=== PATIENT | female | born 1935 | race Caucasian/White ===

== ENCOUNTER 2018-09-08 11:29 | Emergency (ER) | payer MEDICARE ==
[~2018-09-08] VITALS: Ht 157.5 cm; Wt 76.9 kg
[2018-09-08 11:29] VITALS: BP 144/80
[2018-09-08] MEDS ORDERED: AMOX875T PO (11:36)
[2018-09-08] MEDS ORDERED: RANI150T14 (11:36)
[2018-09-08] MEDS ORDERED: HYDR25TAB (11:36)
[2018-09-08] MEDS ORDERED: LEVALBUTEROL 1.25 MG/0.5 ML CONCENTRATE NEB INH ONE (12:00)
[2018-09-08] MEDS ORDERED: PRED20TA PO (13:04)
[2018-09-08] MEDS ORDERED: LEVA750T7 PO (13:04)
[2018-09-08] MEDS ORDERED: PROAAER10 INH (13:06)
--- NOTE | 2018-09-08 13:24 | REP ---
HISTORY: Congestion and wheezing. COMPARISON: 07/02/2011, the only prior. Cardiomediastinal silhouette is unchanged and again seen to be within normal limits. The lung maguire are clear with the exception of minimal bibasilar fibrotic change which has developed since the last exam. The pleural angles are seen to be sharp. No acute patchy parenchymal opacities or pleural effusions have developed. There is a large hiatal hernia. The osseous structure is stable and anatomic. IMPRESSION: No evidence of acute cardiopulmonary disease. 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 Electronically Signed by Dion Woodruff DO 09/08/2018 03:36 P
== END 2018-09-08 13:13 | disposition home or self-care (01) ==
LOC: M ED 11:29
DX: J01.90 Acute sinusitis, unspecified (principal); J20.9 Acute bronchitis, unspecified; I10 Essential (primary) hypertension; Z79.899 Other long term (current) drug therapy; Z79.2 Long term (current) use of antibiotics

== ENCOUNTER 2018-09-16 11:15 | Emergency (ER) | payer MEDICAID, MEDICARE ==
[~2018-09-16] VITALS: Ht 157.5 cm; Wt 77.7 kg
[~2018-09-16 11:15] MED LIST: AMOX875T PO; HYDR25TAB; LEVA750T7 PO; PRED20TA PO; PROAAER10 INH; RANI150T14
--- NOTE | 2018-09-16 12:07 | REP ---
Clinical: Acute cough Comparison: 09/08/2018 . Technique: PA and lateral. Findings: The mediastinum and cardiac silhouette are normal. Large stable hiatal hernia with air-fluid level noted. The lung maguire are clear and without acute consolidation, effusion, or pneumothorax. The skeletal structures are intact and normal. Impression: 1. No acute cardiopulmonary process. 2. Large hiatal hernia. Electronically Signed by Jason Lopez MD 09/16/2018 11:58 A
[2018-09-16 12:08] LABS: BASO % 0.5 % (0.0-1.0); EOS # 0.2 10^3/uL (0.0-0.50); EOS % 3.2 % (0.0-3.0); HEMOGLOBIN 12.9 g/dl (12.0-15.5); LYMPH # 1.5 10^3/uL (1.5-4.5); LYMPH % 20.6 % (24.0-44.0); MEAN CORPUSCULAR HEMOGLOBIN 28.5 pg (27.0-33.0); MEAN CORPUSCULAR HGB CONC 33.1 g/dl (32.0-36.5); MEAN CORPUSCULAR VOLUME 86.3 fl (80.0-96.0); MONO # 0.7 10^3/uL (0.0-0.8); MONO % 8.7 % (0.0-5.0); NEUTROPHILS % 66.6 % (36.0-66.0); PLATELET COUNT, AUTOMATED 348 10^3/uL (150-450); RED BLOOD COUNT 4.52 10^6/uL (4.00-5.40); WHITE BLOOD COUNT 7.5 10^3/uL (4.0-10.0)
[2018-09-16] MEDS ORDERED: ALBUTEROL SULFATE 2.5 MG/0.5 ML INH NEB SOLN NEB PRN (12:30)
[2018-09-16 12:54] LABS: BLOOD UREA NITROGEN 18 MG/DL (7-18); CALCIUM LEVEL 8.9 MG/DL (8.8-10.2); CARBON DIOXIDE LEVEL 30 MEQ/L (21-32); CHLORIDE LEVEL 103 MEQ/L (98-107); GLOMERULAR FILTRATION RATE > 60.0 (>32); GLUCOSE, FASTING 95 MG/DL (70-100); SODIUM LEVEL 138 MEQ/L (136-145)
[2018-09-16] MEDS ORDERED: CHERSYP3 PO (13:05)
[2018-09-16] MEDS ORDERED: AZIT-12 PO (13:15)
[2018-09-16 13:19] VITALS: BP 135/70
--- NOTE | 2018-09-16 19:42 | ECGEPIP ---
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
[2018-09-16] MEDS ORDERED: LEVO750T13 (21:51)
[2018-09-16] MEDS ORDERED: TIMO0.5S29 (21:51)
[2018-09-17] MEDS ORDERED: EASY-106 XX (17:35)
[2018-09-17] MEDS ORDERED: PRED20TA PO (17:36)
[2018-09-17] MEDS ORDERED: ALBU83IN NEB (17:36)
[2018-09-17] MEDS ORDERED: TESS100C PO (19:04)
== END 2018-09-16 13:31 | disposition home or self-care (01) ==
LOC: M ED 11:15
DX: R05 Cough (principal); K44.9 Diaphragmatic hernia without obstruction or gangrene; I10 Essential (primary) hypertension; E78.5 Hyperlipidemia, unspecified; K21.9 Gastro-esophageal reflux disease without esophagitis; Z79.51 Long term (current) use of inhaled steroids; Z79.52 Long term (current) use of systemic steroids; Z79.899 Other long term (current) drug therapy

== ENCOUNTER 2018-09-16 21:45 | Emergency (ER) | payer MEDICARE ==
[~2018-09-16] VITALS: Ht 157.5 cm; Wt 76.4 kg
[2018-09-16 21:45] VITALS: BP 199/88
[~2018-09-16 21:45] MED LIST changes: +AZIT-12 PO; +CHERSYP3 PO
[2018-09-16] MEDS ORDERED: TIMO0.5S29 (21:51)
[2018-09-16] MEDS ORDERED: LEVO750T13 (21:51)
[2018-09-17] MEDS ORDERED: EASY-106 XX (17:35)
[2018-09-17] MEDS ORDERED: ALBU83IN NEB (17:36)
[2018-09-17] MEDS ORDERED: PRED20TA PO (17:36)
[2018-09-17] MEDS ORDERED: TESS100C PO (19:04)
== END 2018-09-16 23:33 | disposition left against medical advice (07) ==
LOC: M ED 21:45
DX: R05 Cough (principal); Z53.21 Procedure and treatment not carried out due to patient leaving prior to being seen by health care provider

== ENCOUNTER 2018-09-17 15:05 | Emergency (ER) | payer MEDICARE ==
[~2018-09-17] VITALS: Ht 157.5 cm; Wt 76.4 kg
[~2018-09-17 15:05] MED LIST changes: +LEVO750T13; +TIMO0.5S29
[2018-09-17] MEDS ORDERED: IPRATROPIUM 0.5MG/ALBUTEROL 2.5MG INH SOL UD 3ML (DUONEB)(J7620) As Ordered ONE (15:20)
[2018-09-17] MEDS ORDERED: IPRATROPIUM 0.5MG/ALBUTEROL 2.5MG INH SOL UD 3ML (DUONEB)(J7620) NEB ONE ×2 (15:30→18:30)
[2018-09-17] MEDS ORDERED: ALBUTEROL SULFATE 2.5 MG/0.5 ML INH NEB SOLN INH ONE (15:30)
--- NOTE | 2018-09-17 16:03 | REP ---
Clinical: Cough and dyspnea . Comparison: 09/16/2018 . Findings: The mediastinum and cardiac silhouette are stable and within normal limits for portable technique. Stable hiatal hernia. The lung maguire are clear without acute consolidation, effusion, or pneumothorax. Skeletal structures are intact. Impression: No acute cardiopulmonary process appreciated. Electronically Signed by Jason Lopez MD 09/17/2018 03:55 P
[2018-09-17 16:14] LABS: BASO % 0.3 % (0.0-1.0); EOS # 0.3 10^3/uL (0.0-0.50); EOS % 5.2 % (0.0-3.0); HEMATOCRIT 37.6 % (36.0-47.0); HEMOGLOBIN 12.7 g/dl (12.0-15.5); LYMPH % 16.4 % (24.0-44.0); MEAN CORPUSCULAR HEMOGLOBIN 29.3 pg (27.0-33.0); MEAN CORPUSCULAR HGB CONC 33.8 g/dl (32.0-36.5); MEAN CORPUSCULAR VOLUME 86.8 fl (80.0-96.0); MONO # 0.5 10^3/uL (0.0-0.8); MONO % 8.7 % (0.0-5.0); NEUTROPHILS # 4.1 10^3/uL (1.8-7.7); NEUTROPHILS % 68.9 % (36.0-66.0); PLATELET COUNT, AUTOMATED 283 10^3/uL (150-450); RED BLOOD COUNT 4.33 10^6/uL (4.00-5.40)
[2018-09-17 16:26] LABS: ALBUMIN 3.1 GM/DL (3.2-5.2); ALT/SGPT 23 U/L (12-78); BILIRUBIN,DIRECT 0.2 MG/DL (0.0-0.2); BILIRUBIN,TOTAL 0.8 MG/DL (0.2-1.0); BLOOD UREA NITROGEN 13 MG/DL (7-18); CALCIUM LEVEL 8.2 MG/DL (8.8-10.2); CARBON DIOXIDE LEVEL 29 MEQ/L (21-32); CHLORIDE LEVEL 97 MEQ/L (98-107); CPK CREATINE PHOSPHOKINASE 76 U/L (26-192); CREATININE FOR GFR 0.76 MG/DL (0.55-1.30); GLOMERULAR FILTRATION RATE > 60.0 (>32); GLUCOSE, FASTING 105 MG/DL (70-100); MB/CK RELATIVE INDEX 1.58 (< OR =4); NT-PRO BNP 153 PG/ML (<450); POTASSIUM SERUM 3.6 MEQ/L (3.5-5.1); SODIUM LEVEL 134 MEQ/L (136-145); TOTAL PROTEIN 6.5 GM/DL (6.4-8.2); TROPONIN I < 0.02 NG/ML (< 0.10)
[2018-09-17] MEDS ORDERED: ISOVUE-370 76% 100ML VIAL (Q9967) As Ordered ONE ×2 (16:44→17:00)
--- NOTE | 2018-09-17 17:26 | REP ---
Clinical: Acute chest pain. Technique: Axial contrast enhanced images from the thoracic inlet to the upper abdomen using 100 ml Isovue 370 intravenous contrast material with coronal and sagittal re-formations. Findings: Satisfactory enhancement of the pulmonary vasculature is achieved and no filling defects are identified to suggest pulmonary embolus. Thoracic aorta is normal caliber without aneurysm or dissection. Heart and pericardium are normal. A large gastric paraesophageal hiatal hernia is identified extending into the right medial hemithorax. Mild lingular and bibasilar atelectasis is appreciated. No significant consolidation. No nodule or mass lesion. No pleural effusion. No pneumothorax. No significant adenopathy. Musculoskeletal structures are intact without focal osseous abnormality. Limited upper abdomen demonstrates normal bilateral adrenal glands along with multiple hepatic hypodensities which are nonspecific but may represent cysts. Impression: 1. No evidence for pulmonary embolus. 2. Large gastric paraesophageal hiatal hernia. 3. Mild lingular and bibasilar atelectasis. 4. Multiple hepatic hypodensities which cannot be further characterized by current CT. Consider follow-up. Electronically Signed by Jason Lopez MD 09/17/2018 05:18 P
[2018-09-17] MEDS ORDERED: EASY-106 XX (17:35)
[2018-09-17] MEDS ORDERED: ALBU83IN NEB (17:36)
[2018-09-17] MEDS ORDERED: PRED20TA PO (17:36)
[2018-09-17 18:50] VITALS: BP 136/67
[2018-09-17] MEDS ORDERED: TESS100C PO (19:04)
--- NOTE | 2018-09-17 21:12 | ECGEPIP ---
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
--- NOTE | 2018-09-19 16:19 | ED PDOC ---
Post-Departure Follow-Up emanuel collado faxed formal report of cta chest for fu Andre Wright MD September 19, 2018 16:19
== END 2018-09-17 19:10 | disposition home or self-care (01) ==
LOC: M ED 15:05
DX: J20.9 Acute bronchitis, unspecified (principal); R94.31 Abnormal electrocardiogram [ECG] [EKG]; K44.9 Diaphragmatic hernia without obstruction or gangrene; J98.11 Atelectasis; K76.89 Other specified diseases of liver; Z79.51 Long term (current) use of inhaled steroids; Z79.891 Long term (current) use of opiate analgesic; Z79.2 Long term (current) use of antibiotics; Z79.899 Other long term (current) drug therapy
CPT/HCPCS: 71045; 71275; 80048; 80076; 82550; 82553; 83605; 83880; 84436; 84443; 84484; 85025; 87040; 87486; 87581; 87633; 87798; 93005; 93041; 94640; 94760; 99285; Q9967

== ENCOUNTER 2023-08-19 09:13 | Emergency (ER) | payer MEDICARE ==
[~2023-08-19] VITALS: Ht 160 cm; Wt 72.3 kg
[~2023-08-19 09:13] MED LIST changes: +ALBU2.5V10 NEB; +EASY-106 XX; +HYDR-3490 PO; -HYDR25TAB; +LEVO1TAB40; -LEVO750T13; +TESS100C PO; +TIMO0.5S20 OU; -TIMO0.5S29
[2023-08-19] MEDS: NS 500 ML IV ONE (09:39)
[2023-08-19] MEDS ORDERED: ISOVUE-370 76% 100ML VIAL As Ordered ONE (09:49)
[2023-08-19 10:07] LABS: BASO # 0.1 10^3/uL (0.0-0.2); BASO % 1.1 % (0.0-1.0); EOS # 0.2 10^3/uL (0.0-0.5); EOS % 2.8 % (0.0-3.0); HEMATOCRIT 35.2 % (36.0-47.0); HEMOGLOBIN 12.6 g/dl (12.0-15.5); LYMPH # 1.8 10^3/uL (1.5-5.0); LYMPH % 27.3 % (24.0-44.0); MEAN CORPUSCULAR HEMOGLOBIN 29.4 pg (27.0-33.0); MEAN CORPUSCULAR HGB CONC 35.8 g/dl (32.0-36.5); MEAN CORPUSCULAR VOLUME 82.2 fl (80.0-96.0); MONO # 0.6 10^3/uL (0.0-0.8); MONO % 8.9 % (2.0-8.0); NEUTROPHILS # 3.9 10^3/uL (1.5-8.5); NEUTROPHILS % 59.6 % (36.0-66.0); PLATELET COUNT, AUTOMATED 336 10^3/uL (150-450); RED BLOOD COUNT 4.28 10^6/uL (4.00-5.40); WHITE BLOOD COUNT 6.5 10^3/uL (4.0-10.0)
[2023-08-19 10:12] LABS: LIPASE 248 U/L (12-53)
[2023-08-19 10:13] LABS: AMYLASE 106 U/L (30-118)
[2023-08-19 10:14] LABS: ALBUMIN 2.8 G/DL (3.2-5.2); ALKALINE PHOSPHATASE 90 U/L (46-116); ALT/SGPT 77 U/L (7.0-40); AST/SGOT 58 U/L (<34); BILIRUBIN,DIRECT 2.3 MG/DL (<0.4); BILIRUBIN,TOTAL 2.9 MG/DL (0.3-1.2); BLOOD UREA NITROGEN 8 MG/DL (9-23); CALCIUM LEVEL 8.8 MG/DL (8.3-10.6); CARBON DIOXIDE LEVEL 28 MMOL/L (20-31); CHLORIDE LEVEL 89 MMOL/L (98-107); CK-MB VALUE MASS < 1.0 NG/ML (<3.6); CPK CREATINE PHOSPHOKINASE 33 U/L (34-145); CREATININE FOR GFR 0.63 MG/DL (0.55-1.30); GLOMERULAR FILTRATION RATE > 60.0 (>32); GLUCOSE, FASTING 120 MG/DL (74-106); MB/CK RELATIVE INDEX 3.03 (< OR =4); POTASSIUM SERUM 3.3 MMOL/L (3.5-5.1); SODIUM LEVEL 123 MMOL/L (136-145); TOTAL PROTEIN 6.9 G/DL (5.7-8.2)
[2023-08-19 10:19] LABS: INR 1.2; PARTIAL THROMBOPLASTIN TIME 26.2 SECONDS (24.8-34.2); PROTHROMBIN TIME 14.9 SECONDS (12.5-14.5)
[2023-08-19 11:18] LABS: OSMOLALITY SERUM 260 MOSM/KG (280-301)
[2023-08-19 11:22] LABS: THYROID STIMULATING HORMONE 2.863 uIU/ML (0.55-4.78)
[2023-08-19 11:35] LABS: CREATININE,RANDOM URINE 48.3 MG/DL
[2023-08-19] MEDS ORDERED: CETI-24 PO (11:39)
[2023-08-19] MEDS ORDERED: ESTR62CR PV (11:39)
[2023-08-19] MEDS ORDERED: ALBU8.5H INH (11:39)
[2023-08-19] MEDS ORDERED: FAMO20TA PO (11:39)
[2023-08-19] MEDS ORDERED: OCUV1CAP4 PO (11:39)
[2023-08-19] MEDS ORDERED: D 101000 PO (11:39)
[2023-08-19] MEDS ORDERED: ALBU2.5V10 INH (11:39)
[2023-08-19] MEDS ORDERED: AMLO1TAB24 PO (11:39)
[2023-08-19] MEDS ORDERED: HOME MED LIST COMPLETE! XX SCH (11:40)
[2023-08-19] MEDS: PIPERACILLIN/TAZOBACTAM SOD 4.5 GM in D5W MINI-BAG PLUS 50 ML IV ONE (11:42)
[2023-08-19] MEDS: NS 1,000 ML IV ONE (11:42)
[2023-08-19 13:41] VITALS: BP 107/55; O2SAT 96
[2023-08-19 13:49] VITALS: TEMP 97.4
== END 2023-08-19 14:13 | disposition short-term general hospital (02) ==
LOC: M ED 09:13 → EDBD 09:13 → M ED 14:13
DX: R10.9 Unspecified abdominal pain (principal); C78.7 Secondary malignant neoplasm of liver and intrahepatic bile duct; K83.1 Obstruction of bile duct; I10 Essential (primary) hypertension; Z79.51 Long term (current) use of inhaled steroids; Z79.899 Other long term (current) drug therapy
CPT/HCPCS: 71045; 74177; 80047; 80048; 80076; 81001; 82150; 82550; 82553; 82570; 83605; 83690; 83930; 83935; 84300; 84439; 84443; 84484; 85025; 85610; 85730; 87040; 87086; 93005; 93041; 96361; 96365; 99285; J2543; Q9967